=== PATIENT | female | born 1995 | race Caucasian/White ===

== ENCOUNTER 2021-02-10 20:40 | Inpatient (IN) | payer BC, OTHER, SELFPAY ==
[2021-02-10] VITALS (15 sets, daily range): BP systolic 109–148; BP diastolic 74–100; PULSE 78–96; RESP 16–18; TEMP 36.6–36.9
--- NOTE | 2021-02-10 20:40 | LDADM ---
This patient, Margo Rg, was admitted to Labor/Delivery/Recovery 107 on 02/10/21 at 20:40. Plans for labor, pain management and were discussed with patient. Patient/family oriented to hospital policies and general routines including ID bracelet, bed and alarms, visiting hours, pain management, procedures, bathroom and other care routines, personal items, smoking policy, room service/diet and guest tray routines, security routines, and visiting hours. Patient/Family are encouraged to report perceived risks to care and to ask questions if they do not understand what they are told or what they should do. See OBIX for further documentation.
[2021-02-10] MEDS: LACTATED RINGERS 1,000 ML 125 ML IV CONT (21:26)
[2021-02-10] MEDS: AMPICILLIN 2 GM/NS 100 ML 2 GM/100 ML BAG IVPB (21:27)
[2021-02-10] MEDS: OXYTOCIN 30 UNITS/NS 500 ML 30 UNITS/500 ML BAG 6 UNITS IV CONT (21:27)
[2021-02-10 21:30] LABS: Basophils Percent Auto 0.2 % (0.2-1.2); Eosinophils Absolute Auto 0.1 K/mm3 (0-0.3); Eosinophils Percent Auto 0.8 % (0-4.4); Hematocrit 36.5 % (37.0-47.0); Hemoglobin 12.5 g/dL (12.0-15.0); Immature Granulocyte Absolute 0.09 K/mm3 (0.00-0.031); Immature Granulocyte Percent A 0.9 % (0-0.5); Lymphocytes Absolute Auto 2.33 K/mm3 (0.9-3.2); Lymphocytes Percent Auto 22.2 % (18.3-44.2); Mean Corpuscular HGB Conc 34.2 g/dl (32-36); Mean Corpuscular Hemoglobin 31.2 pg (26-34); Mean Platelet Volume 9.6 fl (7.4-10.4); Monocytes Absolute Auto 0.7 K/mm3 (0.1-0.6); Monocytes Percent Auto 6.3 % (2.6-8.5); Neutrophils Absolute Auto 7.3 K/mm3 (1.3-6.7); Neutrophils Percent Auto 69.6 % (45.5-73.1); Platelet Count Result 272 k/mm3 (150-375); Red Blood Count 4.01 M/mm3 (4.2-5.4); Red Cell Distribution Width 12.3 % (11.5-14.5); White Blood Count 10.5 K/mm3 (4.5-10.0)
--- NOTE | 2021-02-10 23:11 | PM.IMHP ---
H&P: HPI History of Present Illness Date/Time: 02/10/21 23:02 Margo is a 25yo @ 38.4wks (VIET 02/20/21) who presented to L&D with SROM, clear @ 2030. She reports good movement. No VB or regular contractions. She has had regular care @ [facility]. Her is complicated by: - GBS positive - Rubella non-immune - Elevated glucola, normal OGTT Chief Complaint: leaking fluid Review of Systems Review of Systems: All systems reviewed & are unremarkable except as noted in HPI and below (HPI) [facility] Family History Family History Father Hypertension Social History Social History Smoking status: Never smoker Substance use: never Spiritual care concerns: No Meds Home Medications and Allergies Home Medications Medication Instructions Recorded Confirmed Type PNV cmb#95-ferrous fumarate-FA 1 tablet PO DAILY 01/24/21 02/10/21 History [] Allergies Allergy/AdvReac Type Severity Reaction Status Date / Time No Known Allergies Allergy Verified 01/24/21 14:33 Vital Signs Vital Signs - 24 hr 02/10/21 21:01 02/10/21 21:23 02/10/21 21:30 Temperature 36.9 C Pulse Rate 96 91 Respiratory Rate 18 Blood Pressure 133/87 134/86 02/10/21 21:31 02/10/21 21:46 02/10/21 21:48 Temperature Pulse Rate 92 79 94 Respiratory Rate 18 Blood Pressure 126/84 117/100 H 120/85 02/10/21 22:01 02/10/21 22:16 02/10/21 22:31 Temperature Pulse Rate 83 85 92 Respiratory Rate Blood Pressure 117/74 120/75 118/80 02/10/21 22:46 02/10/21 23:01 Temperature Pulse Rate 85 78 Respiratory Rate Blood Pressure 119/78 109/93 H Exam Const: General: cooperative, healthy appearing, comfortable and no acute distress Resp: Effort & Inspection: normal respiratory effort Cardio: Rate: regular rate GI: GI Palp: No abdominal tenderness and Yes Soft to palpation : Other: FHT's: 140's/mod chris/ + accels/ no decels - cat 1 TOCO: irregular ctx's Cervix: /-2 Membranes: amnisure +; SROM, clear 2030 Presentation: cephalic Skin: General skin exam: normal color Psych: Appearance: grossly normal Affect: normal affect H&P: Results Labs Labs: Short CBC 02/10/21 Range/Units 21:17 WBC 10.5 H (4.5-10.0) K/mm3 Hgb 12.5 (12.0-15.0) g/dL Hct 36.5 L (37.0-47.0) % Plt Count 272 (150-375) k/mm3 Assessment and Plan Assessment and plan (1) Spontaneous rupture of amniotic membranes: Status: Acute (2) : Qualifiers: Weeks of gestation: 38 weeks Qualified Code(s): Z3A.38 - 38 weeks gestation of Code(s): Z34.90 - Encounter for supervision of normal , unspecified, unspecified trimester Status: Acute (3) GBS (group B Streptococcus carrier), +RV culture, currently : Code(s): O99.820 - Streptococcus B carrier state complicating Status: Acute Additional Plan - Admitted to L&D due to SROM - Will begin pitocin augmentation for adequate contractions - Continuous monitoring; currently reassuring - GBS ppx - Anesthesia consult PRN pain
--- NOTE | 2021-02-10 23:11 | WPDHPUPDATE1 ---
History and Physical Update Update Date/Time: 02/10/21 23:11 History and Physical has been reviewed, including an updated exam of the patient. There are NO changes in the patient's condition. Risks, benefits, and alternatives have been discussed and questions answered. Patient agrees to proceed with procedure.
[2021-02-11] VITALS (78 sets, daily range): BP systolic 93–135; BP diastolic 54–99; PULSE 28–143; RESP 16–18; TEMP 36.3–36.8; O2SAT 82–100; BMI 36.1
--- NOTE | 2021-02-11 00:28 | P.PNAN_ITS ---
Anes - Eval Pre Procedure Procedure: labor epidural Date/Time: 02/11/21 00:28 Surgeon: jocy Pre Op Diagnosis: leaking fluid Patient Data Age: 25 Gender: F Height: Weight: Last Vital Signs Temp 36.6 C 02/10/21 23:22 Pulse 90 02/11/21 00:16 Resp 16 02/10/21 23:22 BP 127/86 02/11/21 00:16 Allergies Allergy/AdvReac Type Severity Reaction Status Date / Time No Known Allergies Allergy Verified 01/24/21 14:33 Home Medications Medication Instructions Recorded Confirmed Type PNV cmb#95-ferrous fumarate-FA 1 tablet PO DAILY 01/24/21 02/10/21 History [] Laboratory Tests 02/10/21 02/10/21 02/10/21 21:17 21:17 21:17 WBC 10.5 K/mm3 H K/mm3 (4.5-10.0) RBC 4.01 M/mm3 L M/mm3 (4.2-5.4) Hgb 12.5 g/dL g/dL (12.0-15.0) Hct 36.5 % L % (37.0-47.0) MCV 91.0 fl fl (80-100) MCH 31.2 pg pg (26-34) MCHC 34.2 g/dl g/dl (32-36) RDW 12.3 % % (11.5-14.5) Plt Count 272 k/mm3 k/mm3 (150-375) MPV 9.6 fl fl (7.4-10.4) Immature Gran % (Auto) 0.9 % H % (0-0.5) Neut % (Auto) 69.6 % % (45.5-73.1) Lymph % (Auto) 22.2 % % (18.3-44.2) Treasure % (Auto) 6.3 % % (2.6-8.5) Eos % (Auto) 0.8 % % (0-4.4) Baso % (Auto) 0.2 % % (0.2-1.2) Lymph # (Auto) 2.33 K/mm3 K/mm3 (0.9-3.2) Treasure # (Auto) 0.7 K/mm3 H K/mm3 (0.1-0.6) Eos # (Auto) 0.1 K/mm3 K/mm3 (0-0.3) Baso # (Auto) 0.0 K/mm3 K/mm3 (0.0-0.1) Abs Immat Gran (auto) 0.09 K/mm3 H K/mm3 (0.00-0.031) Absolute Neuts (auto) 7.3 K/mm3 H K/mm3 (1.3-6.7) Absolute Nucleated RBC 0.0 K/mm3 K/mm3 (0.0-0.012) Nucleated RBC % 0.0 % % (0.0-0.2) RPR Pending Blood Type B Positive Antibody Screen Negative Patient hx anesthesia problems: none Family hx anesthesia problems: none Results Review: All pre-operative results and documents have been reviewed as part of the pre-operative evaluation. [facility] Family History Family History Father Hypertension Social History Social History Smoking status: Never smoker Substance use: never Spiritual care concerns: No Exam Day of Procedure 02/11/21 00:28
[2021-02-11] MEDS: AMPICILLIN 1 GM/NS 50 ML 1 GM/50 ML BAG IVPB (00:56)
[2021-02-11] MEDS: LACTATED RINGERS 1,000 ML 125 ML IV CONT (02:43)
--- NOTE | 2021-02-11 04:19 | PM.OBPRVD ---
OB - Delivery Note Procedure Delivery date: 02/11/21 events: Labor Augmentation (SROM) Intrapartal events: None Delivery augmentation: pitocin Delivery monitor: external FHT and external uterine Route of delivery: Laceration Description: Perineal - 2nd Degree Delivery repair: vicryl Specimen: Yes Quantitative Blood Loss (ml): 250 Anesthesia type: Epidural Disposition: floor Baby Date of : 02/11/21 Time of : 03:54 Weeks of gestation at delivery: 38 (.5) gender: Male Weight (pounds): 7 Weight (ounces): 2 presentation: vertex position: Right Occiput Anterior Placenta delivery description: Expressed cord vessel description: 3 Vessels, Nuchal Cord, Loose, Reduced and Delayed Cord Clamping score one minute: 9 score five minutes: 9 Narrative: After epidural placement, Margo rapidly progressed from 5 cm to 9 cm. When she was completely dilated, she had a strong desire to push. She pushed for approximately 1 hour with good maternal effort. She delivered the head over intact perineum. A loose nuchal cord was noted and reduced. She then easily delivered the infants shoulders and body without complications. The had spontaneous cry and was immediately placed skin to skin. Delayed cord clamping was performed. The umbilical cord was then clamped and cut. With Pitocin running and gentle downward traction on the cord, the placenta delivered without any complications. Bimanual massage was performed and good uterine tone with minimal bleeding was noted. The cervix, vagina, and perineum were examined and a second-degree perineal laceration was noted. The second-degree laceration was repaired in the normal fashion using 2-0 Vicryl. Bimanual exam was once again performed and good uterine tone with little bleeding was noted. Sponge, lap, instrument, and needle counts were correct at the end of the procedure. Mom and baby were left bonding skin to skin in birthing suite in a stable condition.
[2021-02-11] MEDS: OXYTOCIN 30 UNITS/NS 500 ML 30 UNITS/500 ML BAG 125 UNITS IV CONT (04:21)
[2021-02-11] MEDS: WITCH HAZEL 40 PADS 1 PAD TOPICAL (07:13)
[2021-02-11] MEDS: IBUPROFEN 600 MG TABLET PO ×3 (07:13→20:26)
[2021-02-11] MEDS: BENZOCAINE 20% AER SPR (*SP) 56 GM CAN 1 SPRAY TOPICAL (07:13)
[2021-02-11] MEDS: DOCUSATE SODIUM 100 MG CAPSULE PO (07:59)
[2021-02-11] MEDS: MULTIVIT/MIN/PREN/FOL AC/IRON TABLET 1 TAB PO (07:59)
[2021-02-11] MEDS: LANOLIN (LANSINOH) 7.5 GM CREAM 1 APPLIC TOPICAL (08:00)
--- NOTE | 2021-02-11 09:38 | OBPPTRN ---
0725-Patient transferred to post room #282 via wheelchair. Support person present. Oriented to unit, room, information board, rooming in, admission packet and security measures. Patient verbalizes understanding.
[2021-02-11 13:12] LABS: Rapid Plasma Reagin Non-Reactive (NonReactive)
[2021-02-12] MEDS: IBUPROFEN 600 MG TABLET PO ×3 (04:16→16:53)
[2021-02-12 04:20] VITALS: BP 120/86; PULSE 72; RESP 16; TEMP 36.5; O2SAT 100
[2021-02-12 04:41] LABS: Hematocrit 36.9 % (37.0-47.0); Hemoglobin 12.3 g/dL (12.0-15.0)
[2021-02-12 08:00] VITALS: BP 122/82; PULSE 69; RESP 18; TEMP 36.3; O2SAT 100
[2021-02-12] MEDS: BENZOCAINE 20% AER SPR (*SP) 56 GM CAN 1 SPRAY TOPICAL (08:32)
[2021-02-12] MEDS: DOCUSATE SODIUM 100 MG CAPSULE PO ×2 (08:32→16:53)
[2021-02-12] MEDS: MULTIVIT/MIN/PREN/FOL AC/IRON TABLET 1 TAB PO (08:32)
[2021-02-12] MEDS: WITCH HAZEL 40 PADS 1 PAD TOPICAL (08:32)
--- NOTE | 2021-02-12 09:51 | WPDANESPN ---
Anes - Prog Note Post-Op Date/Time: 02/12/21 09:51 Cardiovascular status: normal Respiratory status: normal Airway patency: baseline Mental status: baseline Post-Op hydration status: normal Vital Signs: Last Vital Signs Temp 36.3 C L 02/12/21 08:00 Pulse 69 02/12/21 08:00 Resp 18 02/12/21 08:00 BP 122/82 02/12/21 08:00 Pulse Ox 100 02/12/21 08:00 Pain Score (VAS): NO COMPLAINTS Laboratory Tests 02/12/21 04:34 02/10/21 02/12/21 21:17 04:34 Hgb 12.3 Hct 36.9 L RPR Non-reactive Post-procedural complaints: none Patient Feedback: Patient satisfied with anesthetic care.
--- NOTE | 2021-02-12 11:30 | PC.NURSE ---
Mother called out for assist with feeding, reporting was more awake and eager to feed the first 12 hours, he has been sleepy since. Mother is concerned infant is not feeding as long and need to be awoken to feed. Reviewed this is normal feeding patterns. Parents are concerned with infant 8% weight loss of 8 % and has had one urine output in 30 hours. Discussed signs of adequate intake. Reviewed infant feeding cues, frequencies, duration of feedings and feeding elimination flow sheet. is able to freely thrust tongue past gum ridge and flange both lips. Skin is intact on both nipples, no redness and bruising noted. Demonstrated stimulation techniques to wake for feeding. Assisted with infant to breast. Reviewed positioning/alignment in cross cradle, holding breast in ?U? hold and guided asymmetrical latch on. Reviewed rational for each. able to latch correctly within a few attempts. nursed eagerly with steady draws and occasional swallowing noted, some pausing noted. Reviewed signs of a correct latch, effective nursing and suck swallow ratio. Suggested mother stimulate while feeding to increase stimulate, increase intake and to assist with maintaining deep latch. Infant would slip to shallow latch. Demonstrated how to adjust latch more deeply while feeding if needed. Mother reports she can feel the difference in latch with no tenderness. Nipple care reviewed of lanolin after feedings, warm compresses as needed. Parents discussed supplementation, reviewed if parents supplement to use small amounts of 10-15 mls after . Instructed mother to call out for RN assistance if she is unable to latch for feeding or she has discomfort with nursing. Instructed feeding should be initiated three hours from start of last feeding or if feeding cues are noted before. Mother voiced understanding of information shared.
--- NOTE | 2021-02-12 13:59 | P.PNOB_ITS ---
OB - PN: Subj Subjective Date/time seen: 02/12/21 12:30 PPD#1 Margo reports doing well today. She reports only mild pain at her laceration site; no other pain. 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 She has voided, passed gas, ambulated and tolerated regular diet. She is breast feeding w/o issue. She would like her son circumcised. She would like to go home tomorrow. She denies CP, SOB, fever, chills, N/V, CHAUDHARI, vision changes, palpitations or dizziness. OB - PN: Obj Data Labs CBC & Chem 7: 02/12/21 04:34 Labs: Laboratory Results - last 24 hr 02/12/21 04:34 Hgb 12.3 Hct 36.9 L OB - PN A/P Assessment and Plan (1) Normal vaginal delivery of first : Code(s): O80 - Encounter for full-term uncomplicated delivery Status: Acute Plan day: 1 Plan: routine care Comments: - Discharge home tomorrow AM - Pelvic rest, take meds as prescribed - F/u in 4wks - ER return precautions: fever, bleeding, N/V/abd pain, HTN Time Spent With Patient Time: Total time spent is greater than 50% in coordination of care (as documented) at patient's floor/unit and/or counseling patient: Review of Systems Review of Systems: All systems reviewed & are unremarkable except as noted in HPI and below (HPI) Exam Const: General: cooperative, healthy appearing, comfortable and no acute distress Resp: Effort & Inspection: normal respiratory effort Auscultation: clear to auscultation bilaterally Cardio: Rate: regular rate GI: Inspection: non-distended GI Palp: No abdominal tenderness and Yes Soft to palpation Auscultation: normal bowel sounds : Other: fundus firm Skin: General skin exam: normal color Neuro: General: patient oriented x3 Extrem: General: normal to inspection Psych: Appearance: grossly normal Affect: normal affect Attitude: cooperative
[2021-02-12] MEDS: LANOLIN (LANSINOH) 7.5 GM CREAM 1 APPLIC TOPICAL (16:57)
[2021-02-12 19:00] VITALS: BP 134/87; PULSE 70; RESP 16; TEMP 36.7; O2SAT 100
[2021-02-13] MEDS: IBUPROFEN 600 MG TABLET PO (03:11)
--- NOTE | 2021-02-13 06:48 | PC.NURSE ---
Patient viewed the discharge video Mother & Baby Care, The First Two Weeks . Patient was given the opportunity and encouraged to ask questions. Patient verbalized understanding of information shared and has been given the mother/baby guide for home reference.
[2021-02-13 08:55] VITALS: BP 120/82; PULSE 61; RESP 18; TEMP 36.3
[2021-02-13] MEDS: MEASLES,MUMPS,RUBELLA VACCINE 0.5 ML VIAL SUB-Q (08:57)
[2021-02-13] MEDS: MULTIVIT/MIN/PREN/FOL AC/IRON TABLET 1 TAB PO (08:57)
[2021-02-14 09:37] VITALS: BP 122/84; PULSE 77; RESP 16; TEMP 36.8; O2SAT 100
--- NOTE | 2021-02-24 08:39 | PM.OBDSVD ---
DS: Admitting Diagnosis Discharge Date 02/13/21 Admitting Diagnosis labor DS: Discharge Diagnosis Discharge Diagnosis (1) Normal vaginal delivery of first : Code(s): O80 - Encounter for full-term uncomplicated delivery Status: Acute OB - DS: Summary OB Procedures : Ultrasound OB Procedures Intrapartum: Spontaneous Vag Delivery OB Procedures: : None Peripartum Data Infant Delivery Method: Natural Vaginal Laceration Description: Perineal - 2nd Degree complications: none 1: Gender: Male Disposition of : home Status at Discharge Functional status at discharge: independent ambulation Overall status at discharge: patient is back to baseline Time Spent with Patient Time attestation: Total time spent providing and/or coordinating discharge services: Exam Const: General: cooperative, healthy appearing, comfortable and no acute distress Resp: Effort & Inspection: normal respiratory effort Auscultation: clear to auscultation bilaterally Cardio: Rate: regular rate GI: Inspection: non-distended GI Palp: No abdominal tenderness and Yes Soft to palpation Auscultation: normal bowel sounds : Other: fundus firm Skin: General skin exam: normal color Neuro: General: patient oriented x3 Extrem: General: normal to inspection Psych: Appearance: grossly normal Affect: normal affect Attitude: cooperative DS: Data Data Completed and Pending Completed studies during hospitalization: Pending at discharge 02/11/21 03:58 Surgical [PTH] Routine Discharge Plan Discharge Attending physician on discharge: Dolly Kincaid Discharging Clinician: Dolly Kincaid Anticipated Discharge Date/Time: 02/13/21 08:00 Patient Disposition: Home, Self-Care Activity: pelvic rest Diet: regular Discharge Instructions: Education: Mom and Baby Guide and Preeclampsia Handout Given to: Mother Follow-Up: Call your delivering provider's office for an appointment to be seen in: 4 Weeks Mom and baby should come to the [facility] for the follow-up appointment. Appointment Date/Time: February 14, 2021 at 10:00 am What to expect at your follow-up visit: Physical Assessment Call [phone] if you are unable to keep your appointment time. BREAST CARE: * Wear a snug supportive bra. * For engorgement discomfort: Breast Feeding: * Apply warm moist washcloths * Express milk as needed to relieve engorgement * Wear loose clothing * For sore nipples: * Identify correct latch-on * Apply warm moist washcloths before and after nursing * Air dry nipples after nursing * May apply Lansinoh cream to nipples EPISIOTOMY/PERINEAL CARE: * Until bleeding stops, use your yadiel bottle after urinating * Change your pad frequently throughout the day * You may take sitz baths several times a day (fill your bathtub with warm water and soak for 20 minutes.) Do NOT bathe in the water * No tub baths until seen by your physician - You may shower ACTIVITY: * Rest as much as possible. * Do not exercise or lift anything heavier than your baby (such as laundry or other children.) * Avoid stairs or driving as much as possible. * Do not put anything into the vagina. No douching, tampons, or sexual activity until seen by physician. NOTIFY PHYSICIAN IF YOU HAVE ANY QUESTIONS OR IF ANY OF THE FOLLOWING SYMPTOMS OCCUR: * If your episiotomy or incision becomes red, swollen, or more painful than what you have experienced in the hospital. * If your vaginal bleeding becomes foul smelling. * If your vaginal bleeding becomes more heavy than a period or if your bleeding changes from pink to bright red. However, you may pass an occasional walnut-sized clot once or twice for the first week . * If you experience a sharp, shooting pain in you calves. * If you discover a hard, re
== END 2021-02-13 11:43 | disposition home or self-care (01) | DRG 807 ==
LOC: ANHLDR 21:41 → ANHOB2 02-11 07:27
PROVIDERS: Admitting Provider Obstetrics & Gynecology; Visit Provider Obstetrics & Gynecology
DX: O99.824 Streptococcus B carrier state complicating childbirth (principal); Z37.0 Single live birth; O70.1 Second degree perineal laceration during delivery; O69.81X0 Labor and delivery complicated by cord around neck, without compression, not applicable or unspecified; Z3A.38 38 weeks gestation of pregnancy
CPT/HCPCS: 36415; 85014; 85018; 85025; 86592; 86850; 86900; 86901; 88307; 90710; A9270; J0290; J2590; J7120